=== PATIENT | female | born 1955 ===

== ENCOUNTER 2023-02-08 09:55 | Outpatient (CLI) | payer MEDICARE, OTHER | END 2023-02-08 09:56 | disposition home or self-care (01) | LOC: CSHMAMMO 09:55 | PROVIDERS: ATTEND Physical Medicine & Rehabilitation Pain Medicine | DX: Z13.820 Encounter for screening for osteoporosis (principal); M85.851 Other specified disorders of bone density and structure, right thigh; M85.852 Other specified disorders of bone density and structure, left thigh | CPT/HCPCS: 77080 ==